=== PATIENT | male | born 1950 | race Two or more races ===

== ENCOUNTER → 2016-03-31 | Outpatient (CLI) | payer MEDICARE ==
[~2016-03-31] MED LIST: GADOBUTROL 10 MMOL/10 ML VIAL IV ONE
[2016-03-31 11:57] LABS: CREATININE 0.9 mg/dL (0.7-1.3); GFR 84.7
--- NOTE | 2016-03-31 13:20 | RAD ---
PROCEDURE MRI brain without and with contrast. HISTORY Diplopia, headaches, unable to open right eye for 1 month TECHNIQUE Sagittal and axial T1, axial T2, axial FLAIR, axial diffusion, axial gradient echo T2, and post-contrast axial and coronal T1 weighted images were acquired of the brain. Contrast: 9 cc [facility] COMPARISON None FINDINGS Ventricles, sulci, cisterns are within normal limits in size and configuration. There is no intra-axial mass effect, midline shift, extra-axial fluid collection. There is no nodular parenchymal or leptomeningeal enhancement. There is a small left frontal developmental venous anomaly. There is no significant focal signal abnormality of the brain parenchyma. 1.1 centimeter focus of round signal change in the lateral aspect of the right sphenoid sinus may be due to sequela of complex mucous retention cyst. There is also mucous retention cyst of the inferior right maxillary sinus 1.4 cm, minimal left maxillary sinus and very minimal patchy bilateral ethmoid air cell mucosal thickening. There is dysconjugate gaze. Cerebellar tonsils are normal in location. There is no abnormality of the small pituitary gland or the pineal gland. Dedicated orbit images were not obtained with this exam. There is somewhat exuberant extraconal fat of the inferior orbits bilaterally and slightly protruding anteriorly. IMPRESSION 1. There is no significant intracranial abnormality. 2. There is somewhat exuberant extraconal fat of the inferior orbits bilaterally and slightly protruding anteriorly, nonspecific findings. There is dysconjugate gaze. 3. Round focus of signal change of the right sphenoid sinus is more likely due to complex mucous retention cyst. Electronically signed by: Carlos Washington MD (Mar 31, 2016 13:18:41)
== END | disposition home or self-care (01) ==
LOC: MRI 11:21
PROVIDERS: ATTEND Psychiatry & Neurology Neurology
DX: H53.2 Diplopia (principal); R51 Headache
CPT/HCPCS: 36415; 70553; 82565; 82607; 82947; 84520; A9585